=== PATIENT | female | born 1990 | race Caucasian/White ===

== ENCOUNTER 2020-09-01 20:50 | Emergency (ER) | payer SELFPAY ==
[~2020-09-01] VITALS: Ht 162.6 cm; Wt 56.7 kg
[2020-09-01 21:00] VITALS: BP 126/79
[2020-09-01] MEDS ORDERED: LIDOCAINE HCL/MPF 1% 30 ML VIAL IJ ONE (21:16)
[2020-09-01] MEDS ORDERED: ACETAMINOPHEN 325 MG TABLET PO ONE (21:30)
[2020-09-01] MEDS ORDERED: ACETAMINOPHEN ES 500 MG TABLET ONE (21:31)
[2020-09-01] MEDS ORDERED: IBUP-1955 PO (22:03)
== END 2020-09-01 22:39 | disposition home or self-care (01) ==
LOC: ER 20:50
DX: S91.312A Laceration without foreign body, left foot, initial encounter (principal); Z60.2 Problems related to living alone; Z79.899 Other long term (current) drug therapy; W22.8XXA Striking against or struck by other objects, initial encounter; Y93.89 Activity, other specified; Y92.89 Other specified places as the place of occurrence of the external cause; Y99.8 Other external cause status
CPT/HCPCS: 12002; 73630; 99283; A6403; J3490

== ENCOUNTER 2021-04-24 14:54 | Emergency (ER) | payer OTHER ==
[~2021-04-24] VITALS: Ht 162.6 cm; Wt 54.4 kg
[~2021-04-24 14:54] MED LIST: IBUP-1955 PO
--- NOTE | 2021-04-24 15:36 | NUR ---
LAC #20G S/L; PATENT AND INTACT. BLOOD COLLECTED AND SENT TO LAB
--- NOTE | 2021-04-24 15:36 | NUR ---
TO ER BED 6, CHEST PALPITATION X 1 MONTH. FEELING "DIZZY" SINCE AM, NO HX OF HEART ISSUES, NO HX OF ANXIETY, AAOX3, BREATHING EVEN AND NON LABORED, CONNECTED TO MONITOR
[2021-04-24] MEDS ORDERED: hydrOXYzine PAMOATE 25 MG CAPSULE PO ONE (16:30)
[2021-04-24] MEDS ORDERED: hydrOXYzine 10 MG TABLET ONE (16:42)
[2021-04-24 17:05] LABS: BASOPHILS % (AUTO) 0.3 % (0.0-2.0); EOSINOPHILS % (AUTO) 0.5 % (0.0-6.0); HEMATOCRIT 43 % (33-45); HEMOGLOBIN 14.2 g/dL (11.5-14.8); LYMPHOCYTES # (AUTO) 2.4 K/uL (0.8-4.8); LYMPHOCYTES % (AUTO) 29.4 % (20.0-44.0); MEAN CORPUSCULAR HGB CONC 33 g/dl (31.0-36.0); MEAN CORPUSCULAR VOLUME 95 fL (82-100); MONOCYTES # (AUTO) 0.6 K/uL (0.1-1.30); MONOCYTES % (AUTO) 6.9 % (2.0-12.0); NEUTROPHILS % (AUTO) 62.9 % (43.0-81.0); PLATELET COUNT (AUTO) 200 K/uL (150-450); RED BLOOD CELL COUNT(AUTO) 4.54 MIL/uL (4.0-5.2)
[2021-04-24 17:34] LABS: CALCIUM, SERUM 9.2 mg/dL (8.5-10.1); CARBON DIOXIDE 28 mmol/L (21-32); CHLORIDE 104 mmol/L (98-107); CREATININE 0.7 mg/dL (0.6-1.3); GLUCOSE 83 mg/dL (74-106); POTASSIUM 3.3 mmol/L (3.5-5.1); SODIUM SERUM 141 mmol/L (136-145); UREA NITROGEN, BLOOD 7 mg/dL (7-18)
[2021-04-24] MEDS ORDERED: HYDR-500 PO (18:24)
--- NOTE | 2021-04-24 19:08 | NUR ---
Patient discharged to home in stable condition. Written and verbal after care instructions given. Patient verbalizes understanding of instruction.IV removed. Catheter intact and site benign. Pressure and 4x4 applied to site. No bleeding noted.
[2021-04-24 19:09] VITALS: BP 130/80
== END 2021-04-24 19:10 | disposition home or self-care (01) ==
LOC: ER 14:55
DX: F41.9 Anxiety disorder, unspecified (principal); R07.89 Other chest pain; R42 Dizziness and giddiness; Z79.1 Long term (current) use of non-steroidal anti-inflammatories (NSAID); Z79.899 Other long term (current) drug therapy
CPT/HCPCS: 36415; 71045; 80048; 84443; 84484; 84703; 85025; 93005 ×2; 99285; Q0177 ×2

== ENCOUNTER 2022-03-07 18:04 | Emergency (ER) | payer OTHER ==
[~2022-03-07] VITALS: Ht 162.6 cm; Wt 54.4 kg
[~2022-03-07 18:04] MED LIST changes: +HYDR-500 PO
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
[2022-03-07] MEDS ORDERED: HALOPERIDOL LACTATE INJ 5 MG/ML VIAL ONE (18:43)
[2022-03-07] MEDS ORDERED: diphenhydrAMINE HCL 50 MG/ML VIAL ONE (18:43)
[2022-03-07] MEDS ORDERED: LORAZEPAM INJ 2 MG/ML VIAL ONE (18:44)
--- NOTE | 2022-03-07 18:46 | NUR ---
DELVIN MANAGER TALENT ACQUISITION AT BEDSIDE FOR EVAL.
--- NOTE | 2022-03-07 18:53 | NUR ---
PT MEDICATED ORDERED. SEE EMAR.
--- NOTE | 2022-03-07 18:57 | NUR ---
PT PLACED ON 5150 HOLD BY [employer] FOR DTS/DTO
[2022-03-07] MEDS ORDERED: LORAZEPAM INJ 2 MG/ML VIAL IM ONE (19:00)
[2022-03-07] MEDS ORDERED: diphenhydrAMINE HCL 50 MG/ML VIAL IM ONE (19:00)
[2022-03-07] MEDS ORDERED: HALOPERIDOL LACTATE INJ 5 MG/ML VIAL IVP ONE (19:00)
[2022-03-07 20:03] LABS: BASOPHILS % (AUTO) 0.2 % (0.0-2.0); HEMATOCRIT 40 % (33-45); LYMPHOCYTES # (AUTO) 1.4 K/uL (0.8-4.8); LYMPHOCYTES % (AUTO) 9.1 % (20.0-44.0); MEAN CORPUSCULAR HGB CONC 33 g/dl (31.0-36.0); MEAN CORPUSCULAR VOLUME 93 fL (82-100); MONOCYTES # (AUTO) 0.8 K/uL (0.1-1.30); MONOCYTES % (AUTO) 5.3 % (2.0-12.0); NEUTROPHILS # (AUTO) 13.4 K/uL (1.8-8.9); NEUTROPHILS % (AUTO) 85.4 % (43.0-81.0); PLATELET COUNT (AUTO) 254 K/uL (150-450); RED BLOOD CELL COUNT(AUTO) 4.27 MIL/uL (4.0-5.2); WHITE BLOOD COUNT (AUTO) 15.7 K/uL (4.3-11.0)
[2022-03-07 20:21] LABS: BILIRUBIN,DIRECT 0.1 mg/dL (0.0-0.2); BILIRUBIN,TOTAL 0.3 mg/dL (0.2-1.0); CREATININE 0.8 mg/dL (0.6-1.3); POTASSIUM 3.3 mmol/L (3.5-5.1); TOTAL PROTEIN, SERUM 7.1 g/dL (6.4-8.2)
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
[2022-03-07 23:22] LABS: BILIRUBIN,URINE NEGATIVE (NEGATIVE); COLOR,URINE YELLOW (YELLOW); LEUKOCYTE ESTERASE ,URINE NEGATIVE (NEGATIVE); NITRITE, URINE NEGATIVE (NEGATIVE); PROTEIN,URINE TRACE mg/dl (NEGATIVE); UGLUCOSE NEGATIVE (NEGATIVE); UROBILINOGEN,URINE 0.2 EU/dL (0.2)
[2022-03-07 23:50] LABS: BACTERIA,URINE Rare /HPF (None Seen); RBC,URINE 0-2 /HPF (0-2); SQUAMOUS EPITHELIAL CELL,UR Moderate /HPF (None Seen)
[2022-03-08] MEDS ORDERED: ACETAMINOPHEN 325 MG TABLET ONE (04:03)
--- NOTE | 2022-03-08 08:10 | NUR ---
ALMITA CERNA [phone] ETA 60 MINS.
[2022-03-08 10:52] VITALS: BP 122/65
--- NOTE | 2022-03-08 10:52 | NUR ---
Patient discharged to home in stable condition. Written and verbal after care instructions given. Patient verbalizes understanding of instruction.
== END 2022-03-08 10:52 | disposition home or self-care (01) ==
LOC: ER 18:15
DX: S01.01XA Laceration without foreign body of scalp, initial encounter (principal); R45.1 Restlessness and agitation; R41.82 Altered mental status, unspecified; F10.129 Alcohol abuse with intoxication, unspecified; Z60.2 Problems related to living alone; Z79.899 Other long term (current) drug therapy; Y90.6 Blood alcohol level of 120-199 mg/100 ml; W18.09XA Striking against other object with subsequent fall, initial encounter; Y93.89 Activity, other specified; Y92.89 Other specified places as the place of occurrence of the external cause; Y99.8 Other external cause status
CPT/HCPCS: 99285; 96372 ×2; 70450; 85025; 80048; 87086; 80076; 84703; 81001; 36415; 80143; 80320; 80307; J2060; J1200; J1630; A6403; A4649; G0480